=== PATIENT | male | born 1985 | race Caucasian/White ===

== ENCOUNTER 2016-09-04 23:31 | Emergency (ER) | payer OTHER ==
[2016-09-05] LABS: BASO % 0.3 % (0.2-1.2); EOS # 0.2 10_X3_uL (0.0-0.5); GRAN % 52.8 % (34.0-67.9); HEMATOCRIT 43.5 % (40-51); HEMOGLOBIN 15.3 g/dL (13.7-17.5); LYMPH # 3.8 10_X3_uL (1.3-3.6); LYMPH % 39.7 % (21.8-53.1); MEAN CORPUSCULAR HEMOGLOBIN 29.8 pg (27.0-33.0); MEAN CORPUSCULAR HGB CONC 35.2 g/dL (32.0-36.0); MEAN CORPUSCULAR VOLUME 84.6 fL (79-92); MONO # 0.5 10_X3_uL (0.3-0.8); MONO % 5.2 % (5.3-12.2); PLATELET COUNT 233 x10_3/uL (163-337); RED BLOOD COUNT 5.14 x10_6/uL (4.6-6.1); RED CELL DISTRIBUTION WIDTH 12.5 % (11.6-14.4); WHITE BLOOD COUNT 9.5 x10_3/uL (4.2-9.1)
== END 2016-09-05 01:15 | disposition home or self-care (01) ==
LOC: ER 23:31
PROVIDERS: General Practice
DX: M54.5 Low back pain (principal); G89.29 Other chronic pain; M54.16 Radiculopathy, lumbar region; Z86.19 Personal history of other infectious and parasitic diseases; F17.210 Nicotine dependence, cigarettes, uncomplicated; Z88.0 Allergy status to penicillin
CPT/HCPCS: 36415; 72128; 72131; 85025; 96372; 99283-25

== ENCOUNTER 2016-09-24 19:36 | Emergency (ER) | payer OTHER ==
[2016-09-24 20:18] LABS: BASO % 0.3 % (0.2-1.2); EOS # 0.1 10_X3_uL (0.0-0.5); EOS % 0.6 % (0.8-7.0); GRAN # 7.2 10_X3_uL (1.8-5.4); GRAN % 69.9 % (34.0-67.9); HEMATOCRIT 41.9 % (40-51); HEMOGLOBIN 14.7 g/dL (13.7-17.5); LYMPH # 2.3 10_X3_uL (1.3-3.6); LYMPH % 22.7 % (21.8-53.1); MEAN CORPUSCULAR HEMOGLOBIN 29.7 pg (27.0-33.0); MEAN CORPUSCULAR HGB CONC 35.1 g/dL (32.0-36.0); MEAN CORPUSCULAR VOLUME 84.6 fL (79-92); MEAN PLATELET VOLUME 10.5 fl (7.5-11.5); MONO # 0.7 10_X3_uL (0.3-0.8); MONO % 6.5 % (5.3-12.2); PLATELET COUNT 268 x10_3/uL (163-337); RED BLOOD COUNT 4.95 x10_6/uL (4.6-6.1); RED CELL DISTRIBUTION WIDTH 12.5 % (11.6-14.4); WHITE BLOOD COUNT 10.3 x10_3/uL (4.2-9.1)
[2016-09-24 20:47] LABS: ALBUMIN 4.2 gm/dL (3.4-5.0); ALKALINE PHOSPHATASE 63 U/L (50-136); ALT/SGPT 71 U/L (7.53-40.17); AST/SGOT 39 U/L (6.66-35.34); BILIRUBIN,TOTAL 0.39 mg/dL (0.0-1.0); BLOOD UREA NITROGEN 11 mg/dL (7-18); CALCIUM 8.7 mg/dL (8.7-10.7); CARBON DIOXIDE 27 mmol/L (21-32); CREATINE KINASE 123 U/L (35-232); CREATININE 0.7 mg/dL (0.6-1.3); GLUCOSE,RANDOM 87 mg/dL (70-99); POTASSIUM 3.3 mmol/L (3.5-5.1); SODIUM 144 mmol/L (136-145)
== END 2016-09-24 20:56 | disposition home or self-care (01) ==
LOC: ER 19:36
PROVIDERS: Emergency Medicine
DX: T67.5XXA Heat exhaustion, unspecified, initial encounter (principal); R20.0 Anesthesia of skin; Y93.H1 Activity, digging, shoveling and raking; Z86.19 Personal history of other infectious and parasitic diseases; F17.210 Nicotine dependence, cigarettes, uncomplicated; Z88.0 Allergy status to penicillin; Z79.899 Other long term (current) drug therapy; G62.9 Polyneuropathy, unspecified
CPT/HCPCS: 36415; 80053; 82550; 85025; 96372; 99070; 99282-25; 99283